=== PATIENT | female | born 1965 | race Caucasian/White ===

== ENCOUNTER 2021-03-23 09:49 | Outpatient (CLI) | payer MEDICARE, MEDICAID, SELFPAY | END 2021-03-23 09:50 | disposition home or self-care (01) | LOC: ANHBWCAUD 09:52 | PROVIDERS: Visit Provider Otolaryngology | DX: H66.90 Otitis media, unspecified, unspecified ear (principal); H90.6 Mixed conductive and sensorineural hearing loss, bilateral | CPT/HCPCS: 92557; 92567 ==

== ENCOUNTER 2021-05-02 09:00 | Outpatient (RCR) | payer MEDICAID, SELFPAY | END 2021-07-03 23:59 | disposition home or self-care (01) | LOC: ANHBWCAUD 09:00 | PROVIDERS: Visit Provider Otolaryngology | DX: Z46.1 Encounter for fitting and adjustment of hearing aid (principal) | CPT/HCPCS: 99199; V5160; V5221 ==

== ENCOUNTER 2023-01-11 10:47 | Outpatient (CLI) | payer MEDICARE, MEDICAID, SELFPAY | END 2023-01-11 10:48 | disposition home or self-care (01) | LOC: ANHBWCAUD 10:48 | PROVIDERS: Visit Provider Otolaryngology | DX: H65.21 Chronic serous otitis media, right ear (principal); H90.6 Mixed conductive and sensorineural hearing loss, bilateral | CPT/HCPCS: 92557; 92567 ==